=== PATIENT | male | born 1945 | race Caucasian/White ===

== ENCOUNTER 2020-11-07 13:28 | Inpatient (IN) | payer OTHER ==
[2020-11-07] VITALS (25 sets, daily range): BP systolic 106–165; BP diastolic 66–94
[~2020-11-07] VITALS: Ht 172.7 cm; Wt 78.9 kg
[2020-11-07 13:49] LABS: ABSOLUTE BASOPHILS 0.1 thou/uL (0.0-0.2); ABSOLUTE LYMPHOCYTES 2.6 thou/uL (0.8-5.3); ABSOLUTE MONOCYTES 0.6 thou/uL (0.0-1.2); ABSOLUTE NEUTROPHILS 8.9 thou/uL (1.6-8.1); BASOPHILS 0.6 %; EOSINOPHILS 0.2 %; HEMATOCRIT 44.9 % (42.0-52.0); HEMOGLOBIN 14.8 gm/dL (14.0-18.0); LYMPHOCYTES 21.5 %; MCH 29.9 pg (26.0-34.0); MCHC 32.9 g/dL (28.0-37.0); MCV 90.8 fL (80.0-100.0); MPV 7.9 fl. (7.2-11.1); NUCLEATED RBCS 0 /100WBC; PLATELET COUNT* 246 thou/uL (150-400); POLYS 72.7 %; RBC 4.94 mil/uL (4.50-6.00); WBC 12.3 thou/uL (4.0-11.0)
[2020-11-07 14:02] LABS: CALCIUM 8.8 mg/dL (8.5-10.1); CREATININE 0.8 mg/dL (0.6-1.3)
[2020-11-07 14:03] LABS: APTT 29.4 Seconds (25.0-31.3); PROTIME 10.4 Seconds (9.20-11.50)
[2020-11-07 14:14] LABS: ALBUMIN 3.8 g/dL (3.4-5.0); CK-MB MASS 14.7 ng/mL (<0.5-3.6); MAGNESIUM 2.2 mg/dL (1.8-2.4); TOTAL BILIRUBIN 0.4 mg/dL (<0.1-1.0); TOTAL PROTEIN 7.7 g/dL (6.4-8.2)
--- NOTE | 2020-11-07 16:51 | CARD ---
[address] [address] CARDIAC CATH REPORT Name: NATAIBETHLUCY J Room: [address] IN .R.#: [id number] Admission: 11/07/20 Attend Phys: Kaitlin Lopez MD Discharge: Date of : 45 Report #: [id number] THIS REPORT FOR: cc: FAM - No family physician/PCP FAM - No family physician/PCP ~ Ben Beach MD [facility] APPROVED REPORT Study performed: 11/07/2020 13:47:48 Patient Details Patient Status: ED Room #: The patient is a 75 year-old male Event Personnel Ben Beach Photoflash Powder Mixer, Rick Verduzco RN RN, Shankar Cedillo PROFESSIONAL POKER PLAYER Scrub, Zoila Osman RTR Monitor, Jacinto Echeverria Cnc Field Service Engineer Procedures Performed Art Access - R femoral artery Left Heart Cath w/or w/o Coronaries CUONG Revasc AMI Total/Sub Single LAD Hemostasis w/ Angioseal Indication STEMI Risk Factors Family History Admission/Lab Medications/Medications given during procedure Lidocaine Subcut 14 ml, Oxygen Nasal cannula 2 l per min, 0.9% Sodium Chloride IV 75 ml per hr, Angiomax IV 12 ml, Angiomax Drip IV 27.78 ml per hr, Nitroglycerin IC 200 mcg, Adenosine IC 100 mcg, Adenosine IC 150 mcg, Adenosine IC 200 mcg, Aspirin PO 162 mg, Effient PO 60 mg Procedure Narrative The patient was brought emergently to the Cardiac Catheterization Laboratory and was prepped and draped in a sterile manner. The right femoral was infiltrated with 2% Lidocaine subcutaneous anesthesia. A Jber 6 FR sheath was inserted into the right femoral artery. Coronary angiography was performed [place] [address] CARDIAC CATH REPORT Name: LUCY PEACE Room: [address]#: [id number] Admission: 11/07/20 Attend Phys: Kaitlin Lopez MD Discharge: Date of : 45 Report #: [id number] catheters. The right coronary system was accessed and visualized with a Diagnostic 6 Fr JR 4 catheter. The left coronary system was accessed and visualized with a Diagnostic 6 Fr JL 4 catheter. The left ventricle was accessed and visualized with a Diagnostic 6 Fr Pigtail catheter. Left ventricular/Aortic Valve gradient assessed via catheter pullback. Left ventriculogram was performed in KAPLAN projection. Pre-demployment femoral angiogram was performed . Closure device was deployed with a Fr Angioseal STS 6Fr. The patient tolerated the procedure well and there were no complications associated with the procedure. There was no hematoma. Intraoperative Conscious Sedation No Sedation was given. Case start time was 14:07 and case end was 14:57. Fluoro Time: 9.3 minutes Dose: DAP 48580 cGycm2 1143 mGy Contrast Type and Amount: Visipaque 375 ml Diagnostic Cath Left Main 0% narrowing LAD 90% tubular mid vessel stenosis just after the takeoff of the first septal program evaluation consultant with prominent associated thrombus Circumflex Prominent though nondominant vessel with 20% proximal narrowing Right Coronary Dominant vessel with 0% narrowing Left Ventriculography The left ventricle is normal in size with Moderately decreased contractility. The left ventricular ejection fraction is estimated to be 40%. Left ventricular wall motion abnormalities are present. There is no mitral insufficiency. There is mid anterior hypokinesis and apical akinesis noted. Hemodynamics The aortic pressure is 140/60 mmHg with a mean of 93 mmHg. The left ventricular pressure is 125/3 mmHg with a mean of mmHg. The left ventricular end diastolic pressure is 23 mmHg. There was no gradient across the aortic valve upon pullback. PCI Technique Lesion Anticoagulation was achieved with Angiomax Drip. Patient was preloaded with Angiomax IV 12 ml. Percutaneous coronary intervention was performed on the mid left anterior [place] [address] CARDIAC CATH REPORT Name: LUCY PEACE Room: [address]#: [id number] Admission: 11/07/20 Attend Phys: Kaitlin Lopez MD Discharge: Date of : 45 Report #: [id number] lesion stenosis prior to intervention was 90% with TWIN 3 flow. A 6F XB LAD 3.5 Guide Catheter was used to engage the left ostium. A IG: BMW 190cm Interventional Guidewire was used to cross the lesion. BALLOON DILATION A Balloon catheter Euphora SC 2.25x12 was inserted and inflated up to 12.00atm for 9seconds. Additional Inflation: 12.00atm for 7seconds. Additional Inflation: 12.00atm for 13seconds. STENT DEPLOYMENT A drug-eluting stent [place] RX Stent 3.0X15mm was inserted and inflated up to 12.00atm for 13seconds. Additional Inflation: 15.00atm for 7seconds. Final angiography reveals 10 % stenosis with TWIN 3 flow. COMMENTS The patient developed slow flow after stent deployment which required infusion of multiple doses of 150 to 200 mcg of adenosine into the left coronary artery with gradual resolution of the slow flow and return of TWIN-3 flow to the distal LAD. Conclusion 1. Acute anterior wall ST segment elevation myocardial infarction 2. Coronary artery disease characterized by the following: A 90% tubular mid LAD stenosis just after the takeoff of the first septal program evaluation consultant with prominent associated thrombus B 20% proximal circumflex narrowing C dominant right coronary artery without significant narrowing 2. Moderate elevation of left ventricular end-diastolic pressure at rest 3. Moderate impairment in global LV function, estimated ejection fraction being 40% with mid anterior hypokinesis and apical akinesis 4. Successful PCI with deployment of drug[place] [address] CARDIAC CATH REPORT Name: LUCY PEACE Room: [address] IN [facility]#: [id number] Admission: 11/07/20 Attend Phys: Kaitlin Lopez MD Discharge: Date of : 45 Report #: [id number] of 90% tubular mid LAD stenosis with 10% residual narrowing following stent deployment and TWIN-3 flow to the distal vessel after infusion of multiple boluses of adenosine into the left coronary artery Recommendations Cardiac Risk Reduction Program Aggressive Medical Therapy Medications Administered Aspirin (any) Prasugrel IV Angiomax infusion was continued for 4 hours post procedure. Diagnostic Cath Approved by: Jacinto Echeverria MD Date/Time: 11/07/2020 16:50:37 <ELECTRONICALLY SIGNED> By: Ben Beach MD, FACC 11/07/201650 50 50Ben Beach MD, FACC /INF
[2020-11-08] VITALS (13 sets, daily range): BP systolic 103–115; BP diastolic 62–72
[2020-11-08 03:10] LABS: HEMATOCRIT 38.8 % (42.0-52.0); HEMOGLOBIN 13.1 gm/dL (14.0-18.0); MCH 30.4 pg (26.0-34.0); MCHC 33.8 g/dL (28.0-37.0); MCV 90.1 fL (80.0-100.0); MPV 7.9 fl. (7.2-11.1); RBC 4.31 mil/uL (4.50-6.00); RDW-CV 13.5 % (10.5-14.5); WBC 10.8 thou/uL (4.0-11.0)
[2020-11-08 03:42] LABS: ALKALINE PHOSPHATASE 71 U/L (46-116); ANION GAP 8 mmol/L (7-16); BUN 8 mg/dL (7-18); CALCIUM 8.1 mg/dL (8.5-10.1); CHLORIDE 108 mmol/L (98-107); CO2 25 mmol/L (21-32); CREATININE 0.7 mg/dL (0.6-1.3); GLUCOSE 111 mg/dL (70-99); MAGNESIUM 1.9 mg/dL (1.8-2.4); POTASSIUM 3.4 mmol/L (3.5-5.1); SGOT 262 U/L (15-37); SGPT 23 U/L (30-65); SODIUM 141 mmol/L (136-145); TOTAL BILIRUBIN 0.7 mg/dL (<0.1-1.0); TOTAL PROTEIN 6.1 g/dL (6.4-8.2)
[2020-11-08 03:59] LABS: CHOLESTEROL 199 mg/dL (<200); HDL CHOLESTEROL 45 mg/dL (>40); LDL CHOLESTEROL 117 mg/dL (<100); TC:HDL 4.4 Ratio (Not establshd); TRIGLYCERIDE 187 mg/dL (<150); VLDL 37 mg/dL (<40)
[2020-11-08 04:10] LABS: SERUM ASSESSMENT Clear
--- NOTE | 2020-11-08 06:49 | NUR ---
ASSUMED PT CARE AT APPROX. 1945. PT IS A/OX4. VSS. PT IS SR ON TELE MONITOR. PT IS POST STEMI, WITH STENT PLACED TO MID LAD 11/07/20. RIGHT GROIN SITE DRESSING IS C/D/I. NO BRUSING OR HEMATOMA NOTED. RIGHT GROIN SITE IS SOFT WITH PALPATION. SOME FIRMNESS NOTED AT PUBIS. DAY RN STATED THIS WAS NORMAL FOR HIM AND PT AGREED. PTS SKIN COLOR AROUND DRESSING IS NORMAL WITH PTS ETHNICITY. PT DENIES C/O PAIN. PT DENIES C/O CHEST PAIN. DAY RN REPORTED SPEAKING WITH CARDIOLOGY AND RECEIVED ORDER THAT " LONG TROPONIN IS TRENDING DOWN NO NEED TO CALL CARDIOLOGY WITH CRITICALS IF TRENDING UP CALL." PT'S TROPONIN LEVEL AT 0411 HAS DECREASED FROM PREVIOUS LAB. PT HAS RESTED DURING THE NIGHT AND DENIED C/O CHEST PAIN. MEDICATIONS GIVEN PRESCRIBED. FALL PRECAUTIONS IN PLACE FOR SAFETY. CALL LIGHT WITHIN REACH. HOURLY ROUNDING COMPLETE CHARTED. PT CURRENTLY RESTING IN BED ASLEEP.
--- NOTE | 2020-11-08 10:07 | EKG ---
[place] [address] ELECTROCARDIOGRAM REPORT Name: LUCY PEACE Room: [address] ADM IN .R.#: [id number] Admission: 11/07/20 Attend Phys: Kaitlin Lopez, Discharge: Date of : 45 Date of Service: 11/07/20 1335 Report #: [id number] THIS REPORT FOR: //name// [facility] ED Test Date: 2020-11-07 Test Time: 13:35:05 Pat Name: LUCY PEACE Department: Room: [facility] Gender: M Editing Computer Publisher: TRAE : 1945 Requested By: Jesse Hernandez Order Number: [id number] MD: Ben Beach Measurements Intervals [place] Rate: 76 P: 79 VT: 155 QRS: -70 QRSD: 142 T: 33 QT: 400 QTc: 450 Interpretive Statements Sinus rhythm Atrial premature complex IVCD, consider atypical RBBB Anterolateral infarct, acute (LAD) Baseline wander in lead(s) V4 No previous ECG available for comparison Electronically Signed On 11-08-2020 10:07:18 CDT by Ben Beach [email or web address] <ELECTRONICALLY SIGNED> By: Ben Beach MD, FACC 11/08/20 1007 1335 1335 Ben eBach MD, FACC /EPI
--- NOTE | 2020-11-08 10:09 | EKG ---
[place] [address] ELECTROCARDIOGRAM REPORT Name: LUCY PEACE Room: [address] IN ..#: [id number] Admission: 11/07/20 Attend Phys: Kaitlin Lopez, Discharge: Date of : 45 Date of Service: 11/07/20 1601 Report #: [id number] THIS REPORT FOR: //name// [facility] Test Date: 2020-11-07 Test Time: 16:01:10 Pat Name: LUCY PEACE Department: Room: [facility] Gender: M Vp Biology: BESSY : 1945 Requested By: Ben Beach Order Number: [id number] Reading MD: Ben Beach Measurements Intervals [place] Rate: 65 P: 73 MI: 159 QRS: -79 QRSD: 139 T: 77 QT: 411 QTc: 428 Interpretive Statements Sinus rhythm RBBB and LAFB Borderline ST elevation, anterolateral leads Compared to ECG 11/07/2020 13:35:05 Left anterior fascicular block now present There has been evolution of the changes of anterior injury Atrial premature complex(es) no longer present Electronically Signed On 11-08-2020 10:09:37 CDT by Ben Beach [email or web address] <ELECTRONICALLY SIGNED> By: Ben Beach MD, [facility] 11/08/20 1009 160 160 Ben Beach MD, [facility] /EPI
--- NOTE | 2020-11-08 10:15 | EKG ---
[place] [address] ELECTROCARDIOGRAM REPORT Name: LUCY PEACE Room: [address] IN .R.#: [id number] Admission: 11/07/20 Attend Phys: Kaitlin Lopez, Discharge: Date of : 45 Date of Service: 11/08/20 0751 Report #: [id number] THIS REPORT FOR: //name// [facility] Test Date: 2020-11-08 Test Time: 07:51:17 Pat Name: LUCY PEACE Department: Room: [facility] Gender: M Dispatcher Refinery: : 1945 Requested By: Ben Beach Order Number: [id number] Reading MD: Ben Beach Measurements Intervals [place] Rate: 69 P: 61 TN: 161 QRS: -80 QRSD: 139 T: 85 QT: 424 QTc: 455 Interpretive Statements Sinus rhythm Right bundle branch block Probable anteroseptal infarct, recent Lateral leads are also involved Compared to ECG 11/07/2020 16:01:10 Myocardial infarct finding persists Left anterior fascicular block still noted ST (T wave) deviation has evolved Electronically Signed On 11-08-2020 10:15:44 CDT by Ben Beach [email or web address] <ELECTRONICALLY SIGNED> By: Ben Beach MD, [facility] 11/08/20 1015 0751 075 Ben Beach MD, [facility] /EPI
--- NOTE | 2020-11-08 13:52 | 2DMMODE ---
[place] [address] 2 D/M-MODE ECHOCARDIOGRAM Name: LUCY PEACE Room: [address] IN .R#: [id number] Admission: 11/07/20 Attend Phys: Kaitlin Lopez, Discharge: Date of : 45 Date of Service: 11/08/20 1351 Report #: [id number] THIS REPORT FOR: cc: Xander Herrera MD, Bruce D. MD Holkins,Ben Perez MD [facility] ~ APPROVED REPORT Study performed: 11/08/2020 10:43:06 EXAM: Comprehensive 2D, Doppler, and color-flow Echocardiogram Patient Location: In-Patient Room #: 007 Status: routine BSA: 1.94 HR: 74 bpm BP: 115/69 mmHg Rhythm: NSR Other Information Study Quality: Good Indications Acute CO 2D Dimensions IVSd: 13.46 (7-11mm) LVOT Diam: 20.91 (18-24mm) LVDd: 46.54 mm PWd: 11.46 (7-11mm) Ascending Ao: 30.75 (22-36mm) LVDs: 32.12 (25-40mm) Aortic Root: 30.12 mm Volumes Left Atrial Volume (Systole) LA ESV Index: 30.40 mL/m2 Aortic Valve AoV Peak Rodolfo.: 1.49 m/s AO Peak Gr.: 8.86 mmHg LVOT Max P.17 mmHg AO Mean Gr.: 4.94 mmHg LVOT Mean P.05 mmHg LVOT Max V: 1.02 m/s AO V2 VTI: 27.09 cm LVOT Mean V: 0.66 m/s BALDEMAR (VTI): 2.40 cm2 LVOT V1 VTI: 18.90 [place] [address] 2 D/M-MODE ECHOCARDIOGRAM Name: LUCY PEACE Room: [address] IN ..#: [id number] Admission: 11/07/20 Attend Phys: Kaitlin Lopez, Discharge: Date of : 45 Date of Service: 11/08/20 1351 Report #: [id number] Mitral Valve E/A Ratio: 1.18 MV Decel. Time: 180.26 ms MV E Max Rodolfo.: 0.79 m/s MV PHT: 52.28 ms MVA (PHT): 4.21 cm2 TDI E/Lateral E': 7.18 E/Medial E': 8.78 Medial E' Rodolfo.: 0.09 m/s Lateral E' Rodolfo.: 0.11 m/s Pulmonary Valve PV Peak Rodolfo.: 0.95 m/s PV Peak Gr.: 3.61 mmHg Tricuspid Valve RAP Estimate: 5.00 mmHg TR Peak Gr.: 29.98 mmHg RVSP: 34.00 mmHg PA Pressure: 34.00 mmHg Left Ventricle The left ventricle is normal size. Regional wall motion abnormalities are noted with distal anterolateral hypokinesis and apical akinesis. Mild concentric left ventricular hypertrophy. Left ventricular systolic function is mildly decreased. LVEF is 50%. The left ventricular diastolic function is normal. Right Ventricle The right ventricle is normal size. The right ventricular systolic function is normal. Atria The left atrium size is normal. The right atrium size is normal. Aortic Valve Mild aortic valve sclerosis. Mild aortic regurgitation. There is no aortic valvular stenosis. Mitral Valve The mitral valve is normal in structure. Mild mitral regurgitation. No evidence of mitral valve stenosis. Tricuspid Valve The tricuspid valve is normal in structure. Trace tricuspid regurgitation. [place] [address] 2 D/M-MODE ECHOCARDIOGRAM Name: LUCY PEACE Room: [address]#: [id number] Admission: 11/07/20 Attend Phys: Kaitlin Lopze, Discharge: Date of : 45 Date of Service: 11/08/20 1351 Report #: [id number] Pulmonic Valve The pulmonary valve is normal in structure. There is no pulmonic valvular regurgitation. Great Vessels The aortic root is normal in size. IVC is normal in size and collapses >50% with inspiration. Pericardium There is no pericardial effusion. <Conclusion> The left ventricle is normal size. Left ventricular systolic function is mildly decreased. LVEF is 50%. The left ventricular diastolic function is normal. The right ventricle is normal size. The left atrium size is normal. Mild aortic valve sclerosis. Mild aortic regurgitation. There is no aortic valvular stenosis. The mitral valve is normal in structure. Mild mitral regurgitation. The tricuspid valve is normal in structure. IVC is normal in size and collapses >50% with inspiration. There is no pericardial effusion. Regional wall motion abnormalities are noted with distal anterolateral hypokinesis and apical akinesis. <ELECTRONICALLY SIGNED> By: Ben Beach MD, FACC 11/08/20 1351 1351 1351 Ben Beach MD, FACC /INF
--- NOTE | 2020-11-08 14:27 | NUR ---
ICU rounds: Cath yesterday, 1 stent placed. Tele status. Pt is A&O. Resides at home with son. Independent. No DME. No hx of HH or SNF. Goal is home at dc, no needs anticipated. Plan dc tomorrow.
--- NOTE | 2020-11-08 14:44 | CON ---
[address] [address] CONSULTATION Name: LUCY PEACE Room: [address] IN M.R.#: [id number] Admission: 11/07/20 Attend Phys: Kaitlin Lopez MD Discharge: Date of : 45 Report #: [id number] THIS REPORT FOR: cc: Xander Herrera MD, Bruce D. MD ~ Ben Beach MD [facility] DATE OF SERVICE: 11/07/2020 CARDIOLOGY CONSULTATION LOCATION: The patient I believe is in ICU 7. HISTORY OF PRESENT ILLNESS: The patient is a 75-year-old male who has experienced waxing and waning chest discomfort for the preceding 5 days, starting this past Friday. It has particularly been bothersome nocturnally. He has not found any specific intervention to provide relief. It became severe enough today that he sought assistance in the [facility] ER, where electrocardiogram suggested acute anteroseptal injury. We were asked to see the patient in that context. He denies awareness of major risk factors for coronary artery disease with the exception of a positive family history of premature coronary artery disease in the father's side of his family. He used to smoke cigarettes, but no longer does. He does utilize marijuana. He denies awareness of hypertension, hyperlipidemia, or diabetes. He has been on no cardiac medicines. PAST MEDICAL HISTORY: Remarkable for marijuana use. SOCIAL HISTORY: There is a prior history of smoking and current marijuana use. PHYSICAL EXAMINATION: GENERAL: Demonstrates an acutely distressed elderly male. VITAL SIGNS: Blood pressure is 130/70, pulse rate is 74, respirations are 18 per minute. NECK: Jugular venous pressure is normal. CHEST: Clear anteriorly. CARDIAC: Reveals normal first and second heart sounds with a question of S4 gallop. ABDOMEN: Soft and nontender. EXTREMITIES: Without edema with intact femoral, pedal, and radial pulses. EKG is reviewed and demonstrates sinus rhythm with acute anterior wall injury; [place] [address] CONSULTATION Name: LUCY PEACE Room: [address]#: [id number] Admission: 11/07/20 Attend Phys: Kaitlin Lopez MD Discharge: Date of : 45 Report #: [id number] STEMI involving the anterior wall. IMPRESSION: 1. Acute ST segment elevation anterior wall myocardial infarction. 2. Presumed underlying coronary artery disease. 3. Positive family history of coronary artery disease. 4. Marijuana use. RECOMMENDATIONS: 1. Aspirin and heparin in the ER. 2. Emergent catheterization with strong consideration of percutaneous coronary intervention contingent on the results of the study. This has been discussed with the patient, and we will plan to proceed emergently on 11/07/2020. CRITICAL CARE TIME: 35 minutes, from 1500 to 1535. <ELECTRONICALLY SIGNED> By: Bne Beach MD, [facility] 11/08/20 1444 1637 1932Ben Beach MD, FACC /nt
--- NOTE | 2020-11-08 16:22 | NUR ---
PT DENIES ANY PAIN, RT GROIN SITE DSG C/D/I. DISTAL PULSES PRESENT. VSS. TOLERATING DIET. TRANSFER TO TELE AT 1645, REPORT GIVEN TO NOEL SANTANA.
--- NOTE | 2020-11-08 16:31 | NUR ---
PT TO ROOM 214 VIA WC. CALL LIGHT WITHIN REACH. NSR ON MONTIOR. DENIES NEEDS
[2020-11-09 00:02] VITALS: BP 97/56
[2020-11-09 02:06] LABS: GLYCOHEMOGLOBIN (HGB A1C) 5.6 % (4.8-5.6)
[2020-11-09 04:19] LABS: HEMATOCRIT 37.9 % (42.0-52.0); HEMOGLOBIN 12.8 gm/dL (14.0-18.0); MCH 30.6 pg (26.0-34.0); MCHC 33.7 g/dL (28.0-37.0); MCV 90.7 fL (80.0-100.0); MPV 8.5 fl. (7.2-11.1); RBC 4.18 mil/uL (4.50-6.00); RDW-CV 13.2 % (10.5-14.5); WBC 9.8 thou/uL (4.0-11.0)
[2020-11-09 04:37] VITALS: BP 101/63
[2020-11-09 04:45] LABS: ALBUMIN 2.9 g/dL (3.4-5.0); CALCIUM 8.8 mg/dL (8.5-10.1); CREATININE 0.7 mg/dL (0.6-1.3); MAGNESIUM 2.1 mg/dL (1.8-2.4); POTASSIUM 3.6 mmol/L (3.5-5.1); TOTAL PROTEIN 6.3 g/dL (6.4-8.2)
[2020-11-09 05:12] LABS: TROPONIN-I LEVEL 31.01 ng/mL (<0.06)
--- NOTE | 2020-11-09 05:35 | NUR ---
ASSESSMENT DOCUMENTED. MEDS GIVEN PER E-MAR. IV PATENT. NO REPORTS OF PAIN. PTS CATH SITE TO RIGHT GROIN INTACT, BANDAID C/D/I. PT UP AD EULALIO IN ROOM. PT ABLE TO MAKE NEEDS KNOWN. WILL CONTINUE WITH PLAN OF CARE.
[2020-11-09 08:31] VITALS: BP 110/71
[2020-11-09] MEDS ORDERED: BAYER CHEWABLE81 MG PO (08:43)
[2020-11-09] MEDS ORDERED: LIPITOR40 MG PO (08:43)
[2020-11-09] MEDS ORDERED: LISINOPRIL5 MG PO (08:43)
[2020-11-09] MEDS ORDERED: POTASSIUM20 PO (08:43)
[2020-11-09] MEDS ORDERED: EFFIENT10 MG PO (08:43)
[2020-11-09] MEDS ORDERED: CARVEDILOL3.125 MG PO (08:43)
[2020-11-09 10:14] LABS: TROPONIN-I LEVEL ND ng/mL (<0.06)
[2020-11-09 10:55] VITALS: BP 110/71
--- NOTE | 2020-11-09 11:13 | NUR ---
ASSUMED PT CARE AT 0730. PT IS PLEASANTLY A&OX4. PT DENIES ANY DISCOMFORT OR PAIN. PT STATED HE ACTUALLY FEELS GOOD AND IS READY TO GO HOME. ASSESSMENT COMPLETED. MEDICATIONS ADMINISTERED ORDERED.NEW ORDERS RECIEVED TO DISCHARGE PT TO HOME. DISCHARGE INSTRUCTIONS REVIEWED WITH PT AND PT VERBALIZES UNDERSTANDING. SON TO COME PICK PT UP AT 1130AM. HEART MONITOR REMOVED AND IV'S DC'D. ALL BELONGINGS ON PT. NURSING STAFF TO ASSIST PT VIA WC TO MEET SON AT MAIN ENTRANCE.
[2020-11-09 11:14] VITALS: BP 106/64
== END 2020-11-09 11:30 | disposition home or self-care (01) | DRG 246 ==
LOC: M.ERS 13:28 → M.CL 14:00 → M.TBA-CV 14:00 → M.ICU 16:18 → M.2W 16:18 → M.TBA-ER 16:18 → M.ICU 17:13 → M.2W 11-08 15:56
PROVIDERS: Family Medicine; ADMIT Internal Medicine; ATTEND Internal Medicine
PROC: 4A023N7 Measurement of Cardiac Sampling and Pressure, Left Heart, Percutaneous Approach (ICD-10-PCS; principal; 2020-11-07)
PROC: 027034Z Dilation of Coronary Artery, One Artery with Drug-eluting Intraluminal Device, Percutaneous Approach (ICD-10-PCS; principal; 2020-11-07)
PROC: B215YZZ Fluoroscopy of Left Heart using Other Contrast (ICD-10-PCS; principal; 2020-11-07)
PROC: B211YZZ Fluoroscopy of Multiple Coronary Arteries using Other Contrast (ICD-10-PCS; principal; 2020-11-07)
DX: I21.09 ST elevation (STEMI) myocardial infarction involving other coronary artery of anterior wall (principal); I50.21 Acute systolic (congestive) heart failure; I25.10 Atherosclerotic heart disease of native coronary artery without angina pectoris; F12.90 Cannabis use, unspecified, uncomplicated; R73.9 Hyperglycemia, unspecified; E78.5 Hyperlipidemia, unspecified; Z87.891 Personal history of nicotine dependence; Z28.21 Immunization not carried out because of patient refusal